=== PATIENT | male | born 1960 | race American Indian/Alaskan Native ===

== ENCOUNTER 2019-09-10 13:56 | Outpatient (CLI) | payer BC ==
--- NOTE | 2019-09-10 15:24 | XRay Report ---
CHEST 2 VIEWS INDICATION / CLINICAL INFORMATION: PICC INSERTION. COMPARISON: None available. FINDINGS: SUPPORT DEVICES: None. HEART / MEDIASTINUM: No significant abnormality. LUNGS / PLEURA: There is a right paratracheal either lung or mediastinal mass measuring approximately 9 x 6 cm. This displaces the trachea at the left. There is questionable small nodule at the right sintia ng base as well. A PICC line has been placed from a right-sided approach with the tip in the region o f the midportion of the right subclavian vein. Possible small left lung nodules seen. No pneumothorax . ADDITIONAL FINDINGS: No significant additional findings. IMPRESSION: 1. PICC line in the mid right subclavian vein. 2. 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 Signer Name: Dick Bettencourt MD Signed: 09/10/2019 3:19 PM Workstation Name: [id number]
== END 2019-09-10 13:57 | disposition home or self-care (01) ==
LOC: XRAY 13:56
PROVIDERS: ATTEND Internal Medicine Infectious Disease
DX: Z45.2 Encounter for adjustment and management of vascular access device (principal); R91.8 Other nonspecific abnormal finding of lung field; Z95.828 Presence of other vascular implants and grafts
CPT/HCPCS: 71046